=== PATIENT | female | born 1940 | race Caucasian/White ===

== ENCOUNTER 2017-09-13 09:25 | Observation (INO) ==
--- NOTE | 2017-09-13 09:52 | Emergency Department Note ---
Disposition Clinical Impression: Chest pain Disposition: Admitted As Inpatient Condition: Fair Chest Pain HPI - General Chief Complaint: ED Chest Pain Stated Complaint: CP Time Seen by Provider: 09/13/17 09:28 Source: patient, EMS Mode of arrival: EMS Limitations: no limitations Vital Signs Reviewed: Yes Nursing Notes Reviewed: Yes - History of Present Illness HPI Narrative: Patient is a 76-year-old female who presented to [facility] on 09/13/17 with chief complaint of chest pain. Her pain began early this morning. She describes the pain as dull, pressure-like in character, rated 4 out of 10. Pain was intermittent with associated shaking and feeling of anxiety. Patient denies any prior episodes of chest pain. Blood pressure was elevated this morning at 190/110. Patient took a nitroglycerin, which improved her pain. No other relieving/exacerbating factors. Pain was not exacerbated by exertion. No radiation. Denies prior history of HI. Cardiac history is significant for CAD and valvular disease requiring replacement in 2011. She denies fever, chills, nausea, vomiting, shortness of breath, palpitations, dizziness, headache, or syncope. Patient is resting comfortably in bed and has no further complaints at this time. Pt complaint: chest pain Onset (ago): hour(s) Duration: intermittent Onset: during rest Pain Location: substernal Severity: moderate Severity scale (1-10): 4 Quality: heaviness Pain Radiation: none Improves with: nitroglycerin Worsens with: nothing Associated symptoms: Denies: nausea, vomiting, diaphoresis, dyspnea, palpitations, fever, cough - Related Data Home Medications Medication Instructions Recorded Confirmed Aspirin [Lo-Dose Aspirin EC] 81 mg PO DAILY 09/13/17 09/13/17 Citalopram Hydrobromide 20 mg PO DAILY 09/13/17 09/13/17 [Citalopram HBr] Estradiol [Estrace] 1 mg PO DAILY 09/13/17 09/13/17 Fenofibrate Nanocrystallized 145 mg PO DAILY 09/13/17 09/13/17 [Tricor] LORazepam [Ativan] 0.5 mg PO HS 09/13/17 09/13/17 Lisinopril [Zestril] 20 mg PO BID 09/13/17 09/13/17 Metoprolol [Lopressor] 25 mg PO BID 09/13/17 09/13/17 Multivitamin [Multivitamins] 1 cap PO DAILY 09/13/17 09/13/17 [place]-3/Dha/Epa/Fish Oil [Fish Oil 4 cap PO DAILY 09/13/17 09/13/17 1,000 mg Softgel] Omeprazole [PriLOSEC] 20 mg PO DAILY 09/13/17 09/13/17 Rosuvastatin Calcium [Rosuvastatin 40 mg PO HS 09/13/17 09/13/17 Calcium] Allergies Allergy/AdvReac Type Severity Reaction Status Date / Time hydrochlorothiazide AdvReac Mild See Verified 05/01/15 10:25 Comments Penicillins [PCN] AdvReac Rash Verified 05/01/15 10:25 All systems ED: reviewed and negative except as stated. Review of Systems: As Per HPI Constitutional: Reports: as per HPI. Denies: fever, chills, weakness Cardiovascular: Reports: as per HPI, chest pain. Denies: palpitations, dyspnea on exertion, orthopnea, edema, syncope Respiratory: Reports: as per HPI. Denies: cough, dyspnea, wheezes Gastrointestinal: Reports: as per HPI. Denies: abdominal pain, nausea, vomiting Integumentary: Denies: rash Neurological: Reports: as per HPI. Denies: headache, weakness Psychiatric: Reports: as per HPI, anxiety Chest Pain PMH - Past Medical History Medical history: Reports: coronary artery disease, GERD, hypertension, valvular heart disease Surgical history: Reports: colectomy, hysterectomy Psychiatric history: Reports: anxiety - Social History Smoking Status: Never smoker Alcohol use: Reports: none Drug use: Reports: none Physical Exam - General Limitations: no limitations General appearance: alert, anxious - Head Head exam: atraumatic, normocephalic, normal inspection - Eye Eye exam: Present: normal appearance, PERRL, EOMI. Absent: scleral icterus - ENT ENT exam: normal exam - Neck Neck exam: Present: normal inspection, other (No carotid bruits) - Chest Chest inspection: Present: normal inspection, symmetric chest wall rise - Respiratory Respiratory exam: Present: normal lung sounds bilaterally. Absent: respiratory distress, wheezes, stridor, accessory muscle use, prolonged expiratory phase - Cardiovascular Cardiovascular exam: Present: regular rate, normal rhythm, normal heart sounds, +S1, +S2. Absent: bradycardia, tachycardia, JVD - Abdominal Exam Abdominal exam: Present: soft, Non-Tender - Extremities Exam Extremities exam: Present: normal inspection. Absent: pedal edema - Neurological Exam Neurological exam: Present: alert, oriented X3 - Psychiatric Psychiatric exam: Present: normal affect, normal mood, anxious - Skin Skin exam: Present: warm, dry, intact Course Course Narrative: Patient is a 76-year-old female who presented with chest pain. Pain was described as a pressure-like sensation. Relief with nitroglycerin. Patient has a known history of CAD. Chest pain workup initiated. Obtain EKG, chest x- ray, CMP, CBC, PT/INR, and troponin. - Reevaluation(s) Reevaluation #1: EKG demonstrates normal sinus rhythm with no ischemic changes. Patient will be admitted due to chest pain with known history of CAD. Reevaluation #2: Labs unremarkable; troponin negative. CXR demonstrates no acute process. Spoke to hospitalist; patient will be admitted to medicine service. Vital Signs Temperature 97.9 F 09/13/17 09:28 Pulse Rate 72 09/13/17 09:28 Respiratory Rate 18 09/13/17 09:28 Blood Pressure 164/83 09/13/17 09:28 O2 Sat by Pulse Oximetry 95 09/13/17 09:28 Temperature 97.9 F 09/13/17 09:28 Pulse Rate 66 09/13/17 11:52 Respiratory Rate 18 09/13/17 11:52 Blood Pressure 150/74 09/13/17 11:52 O2 Sat by Pulse Oximetry 94 09/13/17 11:52 Oxygen Delivery Oxygen Delivery Room Air Chest Pain - Lab Data Lab results reviewed: Yes I reviewed the patient's lab results. Result diagrams: 09/13/17 09:39 09/13/17 09:39 Lab Results 09/13/17 09/13/17 09/13/17 Range/Units 09:29 09:29 09:39 WBC 5.8 (4.3-11.1) K/mcL RBC 4.10 (3.82-4.97) M/mcL Hgb 12.4 (11.5-15.4) g/dL Hct 36.4 (35.3-44.9) % MCV 88.8 (83.0-100.0) fL MCH 30.2 (28.0-33.3) pg MCHC 34.1 (31.6-35.5) g/dL RDW 13.2 (11.5-14.5) % Plt Count 149 (140-400) K/mcL MPV 10.6 (9.4-12.4) fL Immature Gran % 0.3 (0-4) % Seg Neutrophils % 70.7 % Lymphocytes % 20.0 % Monocytes % 5.7 % Eosinophils % 2.4 % Basophils % 0.9 % Neutrophils # 4.1 (1.6-8.9) K/mcL Lymphocytes # 1.2 (0.6-4.6) K/mcL Monocytes # 0.3 (0.0-1.3) K/mcL Eosinophils # 0.1 (0.0-0.6) K/mcL Basophils # 0.1 (0.0-0.2) K/mcL PT 12.6 H (9.4-12.1) Seconds INR 1.2 APTT 29.1 (26.0-36.0) Seconds Sodium (136-145) mEq/L Potassium (3.5-5.1) mEq/L Chloride (98-107) mEq/L Carbon Dioxide (23-29) mEq/L BUN (8-23) mg/dL Creatinine (0.60-1.20) mg/dL Est GFR ( Amer) (> 60) Est GFR (Non-Af Amer) (> 60) BUN/Creatinine Ratio (6-26) Glucose (70-105) mg/dL Calculated Osmolality (280-300) Calcium (8.6-10.3) mg/dL Troponin I (< 0.04) ng/mL B-Natriuretic Peptide 130 H (Less than 100) pg/mL 09/13/17 Range/Units 09:39 WBC (4.3-11.1) K/mcL RBC (3.82-4.97) M/mcL Hgb (11.5-15.4) g/dL Hct (35.3-44.9) % MCV (83.0-100.0) fL MCH (28.0-33.3) pg MCHC (31.6-35.5) g/dL RDW (11.5-14.5) % Plt Count (140-400) K/mcL MPV (9.4-12.4) fL Immature Gran % (0-4) % Seg Neutrophils % % Lymphocytes % % Monocytes % % Eosinophils % % Basophils % % Neutrophils # (1.6-8.9) K/mcL Lymphocytes # (0.6-4.6) K/mcL Monocytes # (0.0-1.3) K/mcL Eosinophils # (0.0-0.6) K/mcL Basophils # (0.0-0.2) K/mcL PT (9.4-12.1) Seconds INR APTT (26.0-36.0) Seconds Sodium 135 L (136-145) mEq/L Potassium 4.3 (3.5-5.1) mEq/L Chloride 103 (98-107) mEq/L Carbon Dioxide 24 (23-29) mEq/L BUN 21 (8-23) mg/dL Creatinine 0.76 (0.60-1.20) mg/dL Est GFR ( Amer) > 60 (> 60) Est GFR (Non-Af Amer) > 60 (> 60) BUN/Creatinine Ratio 28 H (6-26) Glucose 116 H (70-105) mg/dL Calculated Osmolality 284 (280-300) Calcium 9.1 (8.6-10.3) mg/dL Troponin I < 0.03 (< 0.04) ng/mL B-Natriuretic Peptide (Less than 100) pg/mL - Radiology Data Radiology results reviewed: Yes I reviewed the patient's radiology results. Chest X-Ray 09/13/17 09:29 IMPRESSION: No acute cardiopulmonary findings. D/ / Aissatou Peacock MD / Aissatou Peacock MD Interpreting Provider: Aissatou Peacock MD - EKG Data EKG attestation: Yes I reviewed and interpreted this EKG. EKG shows normal: sinus rhythm Rate: normal Heart Score - Score EKG: Normal Age: Greater than 65 Risk Factors: 1-2 risk factors Troponin: Less than normal limit Attestation Statement - Attestation Attestation: Patient was seen with resident physician. I reviewed the history, physical, assessment and plan, and agree with the findings. I also personally evaluated this patient and had [id number] time with this patient. 76-year-old female presents emergency Department with chest pressure and hypertension since about 8 :00 this morning. Patient states that she has got a cardiac valve and some other form of cardiac history, but she is not exactly sure what it is. He should states that her chest pain is midsternal pressure sensation nonradiating associated with some sweating but no shortness of breath. She took a nitroglycerin at home. She was given 2 nitros and aspirin by EMS and the pain resolved. She denies fevers or chills. No abdominal pain. No traumatic injuries. Review of systems as above remained reviewed negative. Physical exam. Vital signs were stable with only mild hypertension at this point. Neurologically intact. Skin no rashes. Heart slight murmur regular rhythm and rate. Lungs clear. Abdomen soft nontender. Extremities unremarkable without swelling. Neurologically intact. Skin no rashes. ED course initial EKG shows no acute ischemic changes. This is consistent with her old EKG and consistent with a one transmitted by EMS. We will do a complete cardiac workup and admit the patient to the hospitalist service for further evaluation and treatment. We will also ensure that she continues to remain pain free while in the emergency department. Hemodynamically she remained stable. Workup was essentially negative at the time in the ED. She remained chest pain-free. Hospitalist service was notified and agreed to accept patient for admission. Agree with resident physician assessment plan.
[2017-09-13 10:04] LABS: Basophils # 0.1 K/mcL (0.0-0.2); Basophils % 0.9 %; Eosinophils # 0.1 K/mcL (0.0-0.6); Eosinophils % 2.4 %; Hematocrit 36.4 % (35.3-44.9); Hemoglobin 12.4 g/dL (11.5-15.4); Immature Granulocytes % 0.3 % (0-4); Lymphocytes # 1.2 K/mcL (0.6-4.6); Mean Corpuscular HGB Conc 34.1 g/dL (31.6-35.5); Mean Corpuscular Hemoglobin 30.2 pg (28.0-33.3); Mean Corpuscular Volume 88.8 fL (83.0-100.0); Mean Platelet Volume 10.6 fL (9.4-12.4); Monocytes # 0.3 K/mcL (0.0-1.3); Monocytes % 5.7 %; Neutrophils # 4.1 K/mcL (1.6-8.9); Platelet Count 149 K/mcL (140-400); Red Cell Distribution Width 13.2 % (11.5-14.5); Segmented Neutrophils % 70.7 %
[2017-09-13 10:09] LABS: INR 1.2; Prothrombin Time 12.6 Seconds (9.4-12.1)
[2017-09-13 10:12] LABS: Activated Partial Thrombo Time 29.1 Seconds (26.0-36.0)
[2017-09-13 10:27] LABS: BUN/Creatinine Ratio 28 (6-26); Blood Urea Nitrogen 21 mg/dL (8-23); Calcium 9.1 mg/dL (8.6-10.3); Carbon Dioxide 24 mEq/L (23-29); Chloride 103 mEq/L (98-107); Glucose 116 mg/dL (70-105); Osmolality,Calculated 284 (280-300); Potassium 4.3 mEq/L (3.5-5.1); Sodium 135 mEq/L (136-145); eGFR For African Americans > 60 (> 60); eGFR For Non-African Americans > 60 (> 60)
[2017-09-13 10:28] LABS: Troponin I < 0.03 ng/mL (< 0.04)
[2017-09-13] MEDS ORDERED: Naloxone 0.4 MG/ML INJ IVP PRN (16:34)
[2017-09-13] MEDS ORDERED: Ketorolac 30 MG/ML VIAL IVP PRN (16:34)
[2017-09-13] MEDS ORDERED: Acetaminophen 325 MG TABLET PO ONE (16:40)
--- NOTE | 2017-09-13 18:53 | Internal Med History&Physical ---
Date of Encounter: 09/13/17 Time of Encounter: 11:00 Internal Medicine - H&P: HPI Chief complaint: Chest pain Admitted From: Home Plans for Post Hospital Care: Home History of present illness: Patient is a 76-year-old female with past medical history significant for aortic valve replacement and mood disorder who presents to the ER on 09/13/17 due to chest pain. Patient reports of substernal chest pressure without any radiation or provoking/ relieving factors. Patient took nitroglycerin with no relief in symptoms. Patient reports of associated symptoms of shaking but denies any shortness of breath nausea/vomiting or diaphoresis. Patient was concerned and decided to come to the ER for evaluation. In the ER, patients first set of cardiac biomarkers were negative. Patient with will be admitted to medical surgical floor for ACS rule out. Past Med Surg Social Fam HX - Past Medical History Medical history: coronary artery disease, GERD, hypertension, valvular heart disease Psychiatric history: anxiety - Past Surgical History Surgical History: cholecystectomy, hysterectomy - Social History Smoking Status: Former smoker Smokeless Tobacco Status: No Alcohol use: none Drug use: none - Family History Mother Living Status: Age at : 56 Cause of : mi Father Living Status: Age at : 87 Cause of : cva Internal Medicine - H&P: Meds Aspirin [Lo-Dose Aspirin EC] 81 mg PO DAILY 09/13/17 [History] Citalopram Hydrobromide [Citalopram HBr] 20 mg PO DAILY 09/13/17 [History] Estradiol [Estrace] 1 mg PO DAILY 09/13/17 [History] Fenofibrate Nanocrystallized [Tricor] 145 mg PO DAILY 09/13/17 [History] LORazepam [Ativan] 0.5 mg PO HS 09/13/17 [History] Lisinopril [Zestril] 20 mg PO BID 09/13/17 [History] Metoprolol [Lopressor] 25 mg PO BID 09/13/17 [History] Multivitamin [Multivitamins] 1 cap PO DAILY 09/13/17 [History] [place]-3/Dha/Epa/Fish Oil [Fish Oil 1,000 mg Softgel] 4 cap PO DAILY 09/13/17 [ History] Omeprazole [PriLOSEC] 20 mg PO DAILY 09/13/17 [History] Rosuvastatin Calcium [Rosuvastatin Calcium] 40 mg PO HS 09/13/17 [History] 3 Allergy/AdvReac Type Severity Reaction Status Date / Time hydrochlorothiazide AdvReac Mild See Verified 05/01/15 10:25 Comments Penicillins [PCN] AdvReac Rash Verified 05/01/15 10:25 All Systems PM: A 10-system review of systems was performed and is negative for pertinent findings except as documented above in the HPI. - Constitutional Vitals: Temp Pulse Resp BP Pulse Ox 98.1 F 69 16 156/70 96 09/13/17 15:01 09/13/17 15:01 09/13/17 15:01 09/13/17 15:01 09/13/17 15:01 General appearance: Present: A&O X 3, no acute distress - Eye Eye exam: Present: normal appearance - ENT ENT exam: Present: mucous membranes moist - Respiratory Respiratory exam: Present: CTAB. Absent: accessory muscle use, rales, rhonchi, wheezes - Cardiovascular Cardiovascular exam: Present: RRR, +S1, +S2. Absent: diastolic murmur, gallop, rubs, systolic murmur - GI/Abdominal GI/Abdominal exam: Present: normal bowel sounds, soft, no peritoneal signs. Absent: distended, tenderness - Extremities Exam Extremities exam: Absent: pedal edema - Neurological Exam Neurological exam: Present: oriented X3 - Psychiatric Psychiatric exam: Present: normal mood - Skin Skin exam: Present: normal color Internal Med - H&P Results - Labs CBC & Chem 7: 09/13/17 09:39 09/13/17 09:39 Labs: Cardiac Enzymes 09/13/17 Range/Units 17:12 Troponin I < 0.03 (< 0.04) ng/mL - Assessment and plan (1) Chest pain Current Visit: Yes Status: Acute Assessment and plan: First set of cardiac biomarkers negative Will monitor serial cardiac biomarkers and monitor on telemetry Qualifiers: Qualified Code(s): R07.9 - Chest pain, unspecified (2) HTN (hypertension), benign Current Visit: Yes Status: Acute Assessment and plan: Continue home medications (3) Mood disorder Current Visit: Yes Status: Acute Assessment and plan: Continue home medications (4) DVT prophylaxis Current Visit: Yes Status: Acute Assessment and plan: subcutaneous heparin - Time Spent With Patient Total time spent is greater than 50% in coordination of care (as documented) at patient's floor/unit and/or counseling patient:
[2017-09-13] MEDS: *HR* Heparin 5,000 UNIT/ML VIAL SQ SCH (21:17)
[2017-09-13] MEDS: Lisinopril 20 MG TABLET PO SCH (21:17)
[2017-09-13] MEDS: *HR* LORazepam 0.5 MG TABLET PO SCH (21:17)
[2017-09-13] MEDS: Melatonin 3 MG TABLET PO PRN (22:46)
[2017-09-14] MEDS: *HR* Heparin 5,000 UNIT/ML VIAL SQ SCH ×3 (05:16→20:44)
[2017-09-14 05:34] LABS: Basophils # 0.1 K/mcL (0.0-0.2); Basophils % 1.4 %; Eosinophils # 0.3 K/mcL (0.0-0.6); Eosinophils % 4.2 %; Hematocrit 36.3 % (35.3-44.9); Hemoglobin 11.8 g/dL (11.5-15.4); Immature Granulocytes % 0.2 % (0-4); Lymphocytes % 29.4 %; Mean Corpuscular HGB Conc 32.5 g/dL (31.6-35.5); Mean Corpuscular Volume 89.2 fL (83.0-100.0); Mean Platelet Volume 10.5 fL (9.4-12.4); Monocytes # 0.5 K/mcL (0.0-1.3); Monocytes % 7.1 %; Neutrophils # 3.9 K/mcL (1.6-8.9); Platelet Count 161 K/mcL (140-400); Red Blood Count 4.07 M/mcL (3.82-4.97); Red Cell Distribution Width 13.4 % (11.5-14.5); Segmented Neutrophils % 57.7 %
[2017-09-14 05:50] LABS: BUN/Creatinine Ratio 23 (6-26); Blood Urea Nitrogen 21 mg/dL (8-23); Calcium 9.2 mg/dL (8.6-10.3); Carbon Dioxide 25 mEq/L (23-29); Chloride 103 mEq/L (98-107); Glucose 99 mg/dL (70-105); Osmolality,Calculated 283 (280-300); Sodium 135 mEq/L (136-145); eGFR For African Americans > 60 (> 60); eGFR For Non-African Americans 59 (> 60)
[2017-09-14] MEDS: Aspirin Enteric Coated 81 MG Tablet PO SCH (08:48)
[2017-09-14] MEDS: (Omega-3/Dha/Epa/Fish Oil [Fish Oil 1,000 Mg Softgel] PO SCH (08:48)
[2017-09-14] MEDS: Multivit/Ca/Min/Fe/FA 1 TAB TABLET PO SCH (08:49)
[2017-09-14] MEDS: Fenofibrate 54 MG TABLET PO SCH (08:49)
[2017-09-14] MEDS: Lisinopril 20 MG TABLET PO SCH ×2 (08:49→20:44)
--- NOTE | 2017-09-14 11:40 | Discharge Summary ---
Orders not resulted at time of discharge: Pending orders 09/14/17 09:16 EV echocardiogram Routine Date of Encounter: 09/14/17 - Discharge Diagnosis (1) Chest pain Status: Acute Qualifiers: Qualified Code(s): R07.9 - Chest pain, unspecified (2) HTN (hypertension), benign Status: Acute (3) Mood disorder Status: Acute (4) DVT prophylaxis Status: Acute Hospital course: Ms. Boyer is a 76 year old female - Time Spent with Patient Total time spent providing and/or coordinating discharge services: - Discharge Medications Home Medications: Aspirin [Lo-Dose Aspirin EC] 81 mg PO DAILY 09/13/17 [History] Citalopram Hydrobromide [Citalopram HBr] 20 mg PO DAILY 09/13/17 [History] Estradiol [Estrace] 1 mg PO DAILY 09/13/17 [History] Fenofibrate Nanocrystallized [Tricor] 145 mg PO DAILY 09/13/17 [History] LORazepam [Ativan] 0.5 mg PO HS 09/13/17 [History] Lisinopril [Zestril] 20 mg PO BID 09/13/17 [History] Metoprolol [Lopressor] 25 mg PO BID 09/13/17 [History] Multivitamin [Multivitamins] 1 cap PO DAILY 09/13/17 [History] [place]-3/Dha/Epa/Fish Oil [Fish Oil 1,000 mg Softgel] 4 cap PO DAILY 09/13/17 [ History] Omeprazole [PriLOSEC] 20 mg PO DAILY 09/13/17 [History] Rosuvastatin Calcium [Rosuvastatin Calcium] 40 mg PO HS 09/13/17 [History] Allergies/Adverse Reactions: 3 Allergy/AdvReac Type Severity Reaction Status Date / Time hydrochlorothiazide AdvReac Mild See Verified 05/01/15 10:25 Comments Penicillins [PCN] AdvReac Rash Verified 05/01/15 10:25 Date of admission: 09/13/17 11:46 Primary care physician: Joni Barrett MD - Constitutional Vitals: Temp Pulse Resp BP Pulse Ox 98.6 F 54 15 143/76 94 09/14/17 11:20 09/14/17 11:20 09/14/17 11:20 09/14/17 11:20 09/14/17 11:20 General appearance: Present: A&O X 3, no acute distress - Patient Status Condition: Fair - Discharge Instructions Follow Up With: Joni Barrett MD [Primary Care Provider] -
--- NOTE | 2017-09-14 12:39 | Internal Med Progress Note ---
Date of Encounter: 09/14/17 Time of Encounter: 12:37 - Assessment and plan (1) Chest pain Current Visit: Yes Status: Acute Assessment and plan: Trops negative X4 EKG non-ischemic ECHO pending Stress test/2017 was unremarkable for ischemia or infarct. Plan is for discharge patient home if repeat echocardiogram is unremarkable. Qualifiers: Qualified Code(s): R07.9 - Chest pain, unspecified (2) HTN (hypertension), benign Current Visit: Yes Status: Chronic Assessment and plan: continue home meds (3) Mood disorder Current Visit: Yes Status: Chronic Assessment and plan: continue home meds (4) DVT prophylaxis Current Visit: Yes Status: Acute Assessment and plan: Heparin SQ - Time Spent With Patient Total time spent is greater than 50% in coordination of care (as documented) at patient's floor/unit and/or counseling patient: - Subjective Interval history: Seen and evaluated at the bedside. 76-year-old female with history of aortic stenosis status post repair. She will also has hypertension and would disorder. She presented with complaints of chest pain. Troponins have been negative 4. We are awaiting echocardiogram. She has no new complaints M evaluation, and is currently chest pain-free. Patient did confess that she has been on diagnosis stress taking care of her sick and probably thought she just needed to rest. - Constitutional Vitals: Temp Pulse Resp BP Pulse Ox 98.6 F 54 15 143/76 94 09/14/17 11:20 09/14/17 11:20 09/14/17 11:20 09/14/17 11:20 09/14/17 11:20 General appearance: Present: A&O X 3, no acute distress - Head Head exam: Present: atraumatic, normocephalic - Eye Eye exam: Present: PERRL, conjuntiva pink, sclera anicteric Pupils: Present: PERRL - Neck Neck exam general surgery: Present: supple, trachea midline. Absent: lymphadenopathy - Respiratory Respiratory exam: Present: CTAB. Absent: accessory muscle use, rales, rhonchi, wheezes - Cardiovascular Cardiovascular exam: Present: RRR, +S1, +S2, systolic murmur - GI/Abdominal GI/Abdominal exam: Present: normal bowel sounds, soft, no peritoneal signs. Absent: distended, tenderness - Extremities Exam Extremities exam: Present: warm, radial pulses palpable and symmetrical. Absent : calf tenderness, cyanotic, pedal edema - Neurological Exam Neurological exam: Present: alert, CN II-XII intact, oriented X3, no focal deficits. Absent: pronater drift, facial droop, speech deficit - Skin Skin exam: Present: dry, intact Internal Medicine: Result - Labs CBC & Chem 7: 09/14/17 04:59 09/14/17 04:59 Labs: Short CBC 09/14/17 Range/Units 04:59 WBC 6.7 (4.3-11.1) K/mcL Hgb 11.8 (11.5-15.4) g/dL Hct 36.3 (35.3-44.9) % Plt Count 161 (140-400) K/mcL Neutrophils # 3.9 (1.6-8.9) K/mcL BMP 09/14/17 04:59 Sodium 135 L Potassium 4.0 Chloride 103 Carbon Dioxide 25 BUN 21 Creatinine 0.92 Glucose 99 Calcium 9.2 Cardiac Enzymes 09/13/17 09/13/17 09/14/17 Range/Units 17:12 23:01 04:59 Troponin I < 0.03 < 0.03 < 0.03 (< 0.04) ng/mL - ABG Interpretation ABG results: PT/INR, D-dimer PT 12.6 Seconds (9.4-12.1) H 09/13/17 09:29 - Impressions Impressions Cervical Spine X-Ray 09/13/17 16:38 IMPRESSION: No acute osseous abnormality in the cervical spine or the thoracic spine. Multilevel degenerative changes are noted D/ / Missael Dodd / Missael Dodd Interpreting Provider: Missael Dodd Thoracic Spine X-Ray 09/13/17 16:38 IMPRESSION: No acute osseous abnormality in the cervical spine or the thoracic spine. Multilevel degenerative changes are noted D/ / Missael Dodd / Missael Dodd Interpreting Provider: Missael Dodd Consult Discharge Plan - Plan Referrals: Joni Barrett MD [Primary Care Provider] -
[2017-09-14] MEDS: *HR* LORazepam 0.5 MG TABLET PO SCH (20:44)
[2017-09-14] MEDS: Melatonin 3 MG TABLET PO PRN (20:46)
[2017-09-15] MEDS: *HR* Heparin 5,000 UNIT/ML VIAL SQ SCH (05:02)
[2017-09-15] MEDS: Aspirin Enteric Coated 81 MG Tablet PO SCH (08:23)
[2017-09-15] MEDS: Lisinopril 20 MG TABLET PO SCH (08:24)
[2017-09-15] MEDS: Multivit/Ca/Min/Fe/FA 1 TAB TABLET PO SCH (08:24)
[2017-09-15] MEDS: Fenofibrate 54 MG TABLET PO SCH (08:25)
[2017-09-15] MEDS: (Omega-3/Dha/Epa/Fish Oil [Fish Oil 1,000 Mg Softgel] PO SCH (08:25)
--- NOTE | 2017-09-15 10:26 | Discharge Summary ---
- NOTES TO OUTPATIENT PROVIDER Notes to Outpatient Provider: NO change in medications, placed on observation for chest pain, ACS ruled out. Date of Encounter: 09/15/17 Time of Encounter: 09:00 - Discharge Diagnosis (1) Chest pain Priority: Primary Status: Resolved Qualifiers: Chest pain type: unspecified Qualified Code(s): R07.9 - Chest pain, unspecified (2) HTN (hypertension), benign Priority: Secondary Status: Chronic (3) Mood disorder Priority: Secondary Status: Chronic (4) DVT prophylaxis Priority: Secondary Status: Resolved Hospital course: Ms. Boyer is a 76 year old female placed on observation for chest pain rule out. Trops negative X4 EKG non-ischemic ECHO : Bioprosthetic aortic valve replacement with normal function. Mild-moderate central aortic regurgitation. Peak and mean gradients are 27 15 mmHg, respectively. Basal sigmoid septum. Mild left ventricular diastolic dysfunction. The aortic root is mildly dilated. LVEF 65-70%. The aortic root is 3.9 cm.Wall hyperkinesis Stress test/2017 was unremarkable for ischemia or infarct. LHC 2015: minimal artherosclerotic CAD. Patient is asymptomatic , she endorsed stressful home environment and anxiety Already on anxioytics Safe to discharge home to follow up with PCP. Discharge discussed with: patient, nurse - Time Spent with Patient Total time spent providing and/or coordinating discharge services: Less than 30 minutes - Discharge Medications Home Medications: Aspirin [Lo-Dose Aspirin EC] 81 mg PO DAILY 09/13/17 [History] Citalopram Hydrobromide [Citalopram HBr] 20 mg PO DAILY 09/13/17 [History] Estradiol [Estrace] 1 mg PO DAILY 09/13/17 [History] Fenofibrate Nanocrystallized [Tricor] 145 mg PO DAILY 09/13/17 [History] LORazepam [Ativan] 0.5 mg PO HS 09/13/17 [History] Lisinopril [Zestril] 20 mg PO BID 09/13/17 [History] Metoprolol [Lopressor] 25 mg PO BID 09/13/17 [History] Multivitamin [Multivitamins] 1 cap PO DAILY 09/13/17 [History] [place]-3/Dha/Epa/Fish Oil [Fish Oil 1,000 mg Softgel] 4 cap PO DAILY 09/13/17 [ History] Omeprazole [PriLOSEC] 20 mg PO DAILY 09/13/17 [History] Rosuvastatin Calcium [Rosuvastatin Calcium] 40 mg PO HS 09/13/17 [History] Allergies/Adverse Reactions: 3 Allergy/AdvReac Type Severity Reaction Status Date / Time hydrochlorothiazide AdvReac Mild See Verified 05/01/15 10:25 Comments Penicillins [PCN] AdvReac Rash Verified 05/01/15 10:25 Date of admission: 09/13/17 11:46 Primary care physician: Joni Barrett MD Discharging clinician: Vic Alcaraz Anticipated date of discharge: 09/15/17 - Constitutional Vitals: Temp Pulse Resp BP Pulse Ox 98.2 F 53 17 150/67 93 09/15/17 08:05 09/15/17 08:05 09/15/17 08:05 09/15/17 08:05 09/15/17 08:05 General appearance: Present: A&O X 3, no acute distress - Head Head exam: Present: atraumatic, normocephalic - Eye Eye exam: Present: PERRL, conjuntiva pink, sclera anicteric Pupils: Present: PERRL - Neck Neck exam general surgery: Present: supple, trachea midline. Absent: lymphadenopathy - Respiratory Respiratory exam: Present: CTAB. Absent: accessory muscle use, rales, rhonchi, wheezes - Cardiovascular Cardiovascular exam: Present: RRR, +S1, +S2, systolic murmur. Absent: diastolic murmur, gallop, rubs - GI/Abdominal GI/Abdominal exam: Present: normal bowel sounds, soft, no peritoneal signs. Absent: distended, tenderness - Extremities Exam Extremities exam: Present: warm, radial pulses palpable and symmetrical. Absent : calf tenderness, cyanotic, pedal edema - Neurological Exam Neurological exam: Present: alert, CN II-XII intact, oriented X3, no focal deficits. Absent: pronater drift, facial droop, speech deficit - Skin Skin exam: Present: dry, intact - Patient Status Disposition: Home, Self-Care Condition: Good Functional capacity at discharge: independent ambulation Overall status at discharge: patient is back to baseline - Discharge Instructions Follow Up With: Joni Barrett MD [Primary Care Provider] - - Diet and Activity Activity: resume usual activities as tolerated Diet: low fat, low cholesterol, low salt diet
[2017-09-15 11:43] VITALS: BP 150/71
--- NOTE | 2017-09-15 15:32 | Electrocardiograph Report ---
[place] [id number] Test Date: 2017-09-13 Pat Name: Makayla Boyer Department: 104 Room: 3B48 Gender: F [employer] Assurance Nurse: AM : 1940 Requested By: Yash Gary Order Number: [id number] Reading MD: Johnny Reed Measurements Intervals [place] Rate: 66 P: 53 IN: 199 QRS: -23 QRSD: 96 T: 66 QT: 391 QTc: 405 Interpretive Statements SINUS RHYTHM WITH SINUS ARRHYTHMIA BORDERLINE LEFT AXIS DEVIATION MINIMAL VOLTAGE CRITERIA FOR LVH, CONSIDER NORMAL VARIANT Electronically Signed On 09-15-2017 15:30:30 EDT by Johnny Reed
== END 2017-09-15 12:43 | disposition home or self-care (01) ==
LOC: EMEROO 09:25 → 3BNU 09:25 → SUATTDRO 11:46 → 3BNU 12:55
PROVIDERS: ADMIT Hospitalist; ATTEND Internal Medicine

== ENCOUNTER 2019-12-21 19:29 | Observation (INO) ==
[2019-12-21] MEDS ORDERED: Nitroglycerin 0.4 MG TAB.SUBL SL PRN (19:33)
[2019-12-21] MEDS ORDERED: Aspirin 81 MG TAB.CHEW PO ONE (19:33)
[2019-12-21 19:46] LABS: Basophils % 0.5 %; Eosinophils # 0.3 K/mcL (0.0-0.6); Hematocrit 35.7 % (35.3-44.9); Hemoglobin 11.5 g/dL (11.5-15.4); Immature Granulocytes % 0.2 % (0-4); Lymphocytes # 2.1 K/mcL (0.6-4.6); Mean Corpuscular HGB Conc 32.2 g/dL (31.6-35.5); Mean Corpuscular Hemoglobin 29.2 pg (28.0-33.3); Mean Corpuscular Volume 90.6 fL (83.0-100.0); Mean Platelet Volume 10.1 fL (9.4-12.4); Monocytes # 0.5 K/mcL (0.0-1.3); Monocytes % 5.9 %; Neutrophils # 5.7 K/mcL (1.6-8.9); Platelet Count 152 K/mcL (140-400); Red Blood Count 3.94 M/mcL (3.82-4.97); Red Cell Distribution Width 14.3 % (11.5-14.5); Segmented Neutrophils % 66.4 %; White Blood Count 8.5 K/mcL (4.3-11.1)
[2019-12-21 19:55] LABS: INR 1.2; Prothrombin Time 13.7 Seconds (9.4-12.1)
[2019-12-21 20:06] LABS: BUN/Creatinine Ratio 22 (6-26); Blood Urea Nitrogen 24 mg/dL (8-23); Calcium 9.5 mg/dL (8.6-10.3); Carbon Dioxide 22 mEq/L (23-29); Chloride 103 mEq/L (98-107); Glucose 95 mg/dL (70-105); Osmolality,Calculated 284 (280-300); Potassium 4.1 mEq/L (3.5-5.1); Sodium 135 mEq/L (136-145); Troponin I < 0.03 ng/mL (< 0.04); eGFR For African Americans 59 (> 60); eGFR For Non-African Americans 49 (> 60)
[2019-12-21] MEDS ORDERED: Furosemide 40 MG/4 ML VIAL IVP ONE (20:53)
[2019-12-21] MEDS ORDERED: Naloxone 0.4 MG/ML INJ IVP PRN (22:09)
[2019-12-22] MEDS ORDERED: GI Cocktail 40 ML EACH PO ONE (00:21)
[2019-12-22] MEDS ORDERED: Isovue-370 500 ML BOTTLE IVP ONE (00:26)
[2019-12-22] MEDS ORDERED: Perflutren Lipid Microsphere 1.3 ML in 0.9 % Sodium Chloride 8.7 ML IVP PRN (02:58)
[2019-12-22 04:39] LABS: Hematocrit 37.7 % (35.3-44.9); Hemoglobin 12.2 g/dL (11.5-15.4); Mean Corpuscular HGB Conc 32.4 g/dL (31.6-35.5); Mean Corpuscular Hemoglobin 29.4 pg (28.0-33.3); Mean Corpuscular Volume 90.8 fL (83.0-100.0); Mean Platelet Volume 10.4 fL (9.4-12.4); Platelet Count 158 K/mcL (140-400); Red Blood Count 4.15 M/mcL (3.82-4.97); Red Cell Distribution Width 14.3 % (11.5-14.5); White Blood Count 8.5 K/mcL (4.3-11.1)
[2019-12-22 04:59] LABS: Calcium 9.9 mg/dL (8.6-10.3); Magnesium 2.2 mg/dL (1.6-2.6); Phosphorous 3.4 mg/dL (2.7-4.5); Potassium 3.8 mEq/L (3.5-5.1)
[2019-12-22] MEDS ORDERED: NON-FORMULARY MEDICATION 1 EACH EACH (Nitroglycerin 0.4 MG) SL PRN (08:00)
[2019-12-22] MEDS ORDERED: *HR* LORazepam 0.5 MG TABLET PO PRN (08:00)
[2019-12-22] MEDS: lisinopriL 20 MG TABLET PO SCH ×2 (09:43→20:42)
[2019-12-22] MEDS: Furosemide 20 MG TABLET PO SCH (09:43)
[2019-12-22] MEDS: Cyanocobalamin (B-12) 1,000 MCG TABLET PO SCH (09:43)
[2019-12-22] MEDS: estradioL 1 MG TABLET PO SCH (09:43)
[2019-12-22] MEDS: amLODIPine 5 MG TABLET PO SCH (09:43)
[2019-12-22] MEDS: Fenofibrate 54 MG TABLET PO SCH (09:47)
[2019-12-22] MEDS ORDERED: Warfarin perPT PO PRN (18:00)
[2019-12-22] MEDS ORDERED: Melatonin 3 MG TABLET PO SCH (21:00)
[2019-12-22] MEDS ORDERED: Acetaminophen 325 MG TABLET PO PRN (21:43)
[2019-12-23 07:06] LABS: Calcium 9.7 mg/dL (8.6-10.3); Potassium 3.7 mEq/L (3.5-5.1)
[2019-12-23 07:13] VITALS: BP 157/64
[2019-12-23] MEDS: amLODIPine 5 MG TABLET PO SCH (08:46)
[2019-12-23] MEDS: estradioL 1 MG TABLET PO SCH (08:46)
[2019-12-23] MEDS: Fenofibrate 54 MG TABLET PO SCH (08:47)
[2019-12-23] MEDS: Furosemide 20 MG TABLET PO SCH (08:47)
[2019-12-23] MEDS: lisinopriL 20 MG TABLET PO SCH (08:47)
[2019-12-23] MEDS: Cyanocobalamin (B-12) 1,000 MCG TABLET PO SCH (08:47)
== END 2019-12-23 11:10 | disposition home or self-care (01) ==
LOC: EMEROOARM 19:29 → 3BNU 19:29
PROVIDERS: ADMIT Family Medicine; ATTEND Family Medicine